=== PATIENT | male | born 1975 | race Caucasian/White ===

== ENCOUNTER → 2017-04-19 | Outpatient (CLI) | payer OTHER ==
--- NOTE | 2017-04-19 09:24 | Diagnostic Imaging Report ---
INDICATION: Left knee pain. TIME OF EXAM: 9:09 AM 3 views of the left knee were obtained. FINDINGS: The alignment is normal. The joint spaces are well-maintained. Articular surfaces are smooth. No fracture, dislocation or effusion is seen. IMPRESSION: No acute bony abnormality is detected. Dictated by: Dictated on workstation # [id number]
== END ==
LOC: RAD 08:39
PROVIDERS: ATTEND Nurse Practitioner Family
DX: M25.562 Pain in left knee (principal)
CPT/HCPCS: 73562

== ENCOUNTER → 2017-07-13 | Outpatient (CLI) | payer OTHER ==
--- NOTE | 2017-07-13 08:22 | Diagnostic Imaging Report ---
EXAMINATION: Magnetic resonance imaging of the left knee without intravenous contrast DATE: 07/13/2017. COMPARISON: Left knee radiographs 04/19/2017. INDICATION: A 41-year-old male, left knee pain. TECHNIQUE: Multiplanar, multisequence non contrast enhanced MR imaging was accomplished. FINDINGS: MENISCI: The medial meniscus is intact. The lateral meniscus is intact. LIGAMENTS AND TENDONS: The anterior and posterior cruciate ligaments are intact. The medial collateral ligament is intact. The iliotibial band, mid third lateral capsular ligament, fibular collateral ligament, biceps femoris tendon and conjoined tendon are intact. The quadriceps tendon and patella ligament are intact. JOINT: There is no identified cartilage defect. There is no knee joint effusion, prominent synovitis, or intra-articular body. BONE: There is nonspecific edema-like signal of the lateral femoral condyle near the popliteus tendon insertion. This may be mechanically related. There is no acute fracture. There is no evidence of osteonecrosis. The additional bone marrow signal is unremarkable. BURSAE AND SOFT TISSUES: There is no Richmond's cyst. There is nonspecific prepatellar subcutaneous edema. IMPRESSION: 1. Intact menisci and cruciate ligaments. Additional ligaments and tendons are intact. 2. Grossly intact articular cartilage. No knee joint effusion, prominent synovitis, or intra-articular body. 3. Low-level edema-like signal in the lateral femoral condyle near the popliteus tendon insertion which may potentially be mechanically related. No acute fracture. The additional bone marrow signal is unremarkable. Dictated by: Dictated on workstation # [id number]
== END ==
LOC: RAD 07:01
PROVIDERS: ATTEND Family Medicine
DX: M25.562 Pain in left knee (principal); G89.29 Other chronic pain
CPT/HCPCS: 73721

== ENCOUNTER 2017-08-08 08:01 | Outpatient (RCR) | payer OTHER | END 2017-08-12 | disposition home or self-care (01) | PROVIDERS: ATTEND Family Medicine | DX: M25.562 Pain in left knee (principal) ==

== ENCOUNTER 2017-08-23 08:35 | Outpatient (RCR) | payer OTHER | END 2017-08-23 17:00 | disposition home or self-care (01) | PROVIDERS: ATTEND Family Medicine | DX: M25.562 Pain in left knee (principal) ==

== ENCOUNTER → 2017-12-24 | Outpatient (CLI) | payer OTHER | LOC: CARD 08:39 | PROVIDERS: ATTEND Internal Medicine Cardiovascular Disease | DX: R07.89 Other chest pain (principal); I10 Essential (primary) hypertension; R00.2 Palpitations; Z82.49 Family history of ischemic heart disease and other diseases of the circulatory system | CPT/HCPCS: 93306 ==

== ENCOUNTER → 2017-12-25 | Outpatient (CLI) | payer OTHER | LOC: CARD 10:06 | PROVIDERS: ATTEND Internal Medicine Cardiovascular Disease | DX: R07.89 Other chest pain (principal); I10 Essential (primary) hypertension; R00.2 Palpitations; Z82.49 Family history of ischemic heart disease and other diseases of the circulatory system | CPT/HCPCS: 93017 ==

== ENCOUNTER → 2021-05-29 | Outpatient (CLI) | payer OTHER ==
[2021-05-29 09:41] LABS: ALBUMIN 3.6 GM/DL (3.2-4.5)
[2021-05-29 09:42] LABS: CALCIUM 8.8 MG/DL (8.5-10.1)
[2021-05-29 09:45] LABS: BILIRUBIN,TOTAL 1.5 MG/DL (0.1-1.0)
[2021-05-29 09:47] LABS: CREATININE SERUM 1.11 MG/DL (0.60-1.30)
== END ==
LOC: LAB 08:59
PROVIDERS: ATTEND Internal Medicine Cardiovascular Disease
DX: I10 Essential (primary) hypertension (principal); I25.10 Atherosclerotic heart disease of native coronary artery without angina pectoris; E78.2 Mixed hyperlipidemia
CPT/HCPCS: 36415; 80053; 80061